=== PATIENT | female | born 1990 | race Caucasian/White ===

== ENCOUNTER → 2017-03-10 | Outpatient (CLI) | payer MEDICAID ==
[~2017-03-10] MED LIST: BACTRIM DS 8001 TAB PO; BC PILL; KEFLEX 500MG.500 MG PO; LEVAQUIN500 MG PO; NOMEDS *; PENICILLIN-VK500 MG PO; PRENATABS FA1 TAB PO; PYRIDIUM 200MG200 MG PO; PYRIDIUM100 MG PO; VIBRAMYCIN 100100 MG PO; VICODIN 5/500 T1 TAB PO; VOLTAREN75 MG PO; [UNRECOGNIZED DRUG - REMARK]
--- NOTE | 2017-03-10 15:24 | RADIOLOGY REPORT PS360 ---
US PREG COMP: INDICATION: OB ANATOMY SCAN ORDERING PHYSICIAN: Ephraim Mendez MD PATIENT AGE: 26 years TECHNIQUE: ultrasound transabdominal scanning. COMPARISON: No previous relevant studies. FINDINGS: Single viable intrauterine gestation. Cephalic position. Placenta: Anterior placenta grade 1. There is average amount fluid. The cervix appears satisfactory. Closed and measuring 3 cm in length. Complete survey performed and was unremarkable on the submitted images as in PACS. No discrete anomalies identified on survey imaging by technologist. Active fetus. Three-vessel cord with satisfactory umbilical cord insertion. 4- chamber heart noted. Survey of brain & ventricles. Face and neck survey unremarkable. Diaphragm and chest views unremarkable. Abdomen: Both kidneys noted and unremarkable. Stomach noted and satisfactory. Spine: Survey of the spine satisfactory with no anomalies identified nor imaged. Both arms and legs noted. Amniotic Fluid: Adequate. Maternal adnexa: No significant findings. Measurements: Average ultrasound age 19 weeks 3 days. Gestational Age 19 weeks 6 days. Estimated due date by ultrasound age 1008/01/2017. Estimated weight 291 grams. BPD = 19 weeks 3 days OFD = 20 weeks 1 day HC = 19 weeks 1 day AC = 19 weeks 3 days FL = 19 weeks 5 days Heart Rate = 149 BPM Cerebellum = 20 weeks 0 days Humerus = 19 weeks 2 days HC/AC is 1.17. CI is 76%. FL/BPD is 70%. FL/AC is 22%. IMPRESSION: There is a single live fetus present in cephalic presentation with an average ultrasound age of 19 weeks 3 days. heart and body motion noted. No anatomic abdomen eyes apparent. Anterior placenta without previa or abruption. Please see above for detail
== END ==
LOC: RAD 12:53
DX: Z36 Encounter for antenatal screening of mother (principal)

== ENCOUNTER → 2017-03-17 | Outpatient (CLI) | payer MEDICAID | LOC: LAB 17:15 | DX: N39.0 Urinary tract infection, site not specified (principal) ==

== ENCOUNTER → 2017-06-30 | Outpatient (CLI) | payer MEDICAID | LOC: LAB 17:48 | DX: Z34.80 Encounter for supervision of other normal pregnancy, unspecified trimester (principal) ==

== ENCOUNTER 2017-07-12 14:55 | Outpatient (CLI) | payer MEDICAID ==
[~2017-07-12] VITALS: Ht 160 cm; Wt 53.5 kg
[2017-07-12 15:12] VITALS: BP 111/72
[2017-07-12 15:17] LABS: URINE BILIRUBIN - DIPSTICK NEGATIVE (NEG); URINE BLOOD NEGATIVE (NEG)
== END 2017-07-12 16:05 | disposition home or self-care (01) ==
LOC: OBOUT 14:55 → OB 14:56 → OBOUT 16:05
PROVIDERS: Nurse Practitioner Obstetrics & Gynecology
DX: O60.03 Preterm labor without delivery, third trimester (principal); Z3A.37 37 weeks gestation of pregnancy

== ENCOUNTER → 2017-07-16 | Outpatient (CLI) | payer MEDICAID ==
[~2017-07-16] MED LIST changes: +PERCOCET 5/3251 EACH PO
--- NOTE | 2017-07-16 15:07 | RADIOLOGY REPORT PS360 ---
US PREG FOLLOWUP SINGLE FETUS: Indication: OB US FOR SMALL GESTATIONAL AGE ORDERING PHYSICIAN: Ephraim Mendez MD PATIENT AGE: 26 years FINDINGS: Single live fetus is present in the cephalic presentation. heart and body motion is noted. The placenta is anterior and grade 2. No previa or abruption The following parameters are obtained: Average ultrasound age is 34 weeks 6 days. Gestational age is 38 weeks 1 day. Estimated due date by ultrasound is 08/21/2017. Estimated weight is 2565 g. This is at 5 percentile according to last menstrual period BPD: 33 weeks 6 days OFD: 39 weeks 0 days HC: 35 weeks 2 days AC: 35 weeks 5 days FL: 34 weeks 1 day heart rate: 146 bpm. HC/AC: 0.99 Cephalic index: 74% FL/BPD: 79% FL/AC: 21% Amniotic fluid index: 10 cm Qualitative AFV: 2 breathing movements: 2 Gross body movements: 2 Tone: 2 Biophysical profile score: 8/8 Doppler evaluation of the umbilical artery: SD ratio: 2.9 Resistive index: 0.66 No obvious anomalies evident. IMPRESSION: Live IUP with an average ultrasound age of 34 weeks 6 days. Estimated weight is 2565 g at 5 percentile according to last menstrual period. There has been adequate progression when compared to the previous ultrasound of 07/05/2017. At that time the estimated weight was 4 lbs. 3 oz.
== END ==
LOC: RAD 09:00
DX: O36.5131 Maternal care for known or suspected placental insufficiency, third trimester, fetus 1 (principal)

== ENCOUNTER 2017-07-22 03:01 | Inpatient (IN) | payer MEDICAID ==
[~2017-07-22] VITALS: Ht 160 cm; Wt 52.6 kg
[~2017-07-22 03:01] MED LIST changes: -PERCOCET 5/3251 EACH PO
[2017-07-22 07:11] LABS: BUN 5 mg/dL (7-18)
[2017-07-22 07:12] LABS: GFR (ESTIMATED) 103 ML/MIN (59-)
[2017-07-22 08:03] LABS: HEMOGLOBIN 12.9 g/dL (12.2-16.2)
[2017-07-22 08:04] LABS: LYMPH # 2.8 K/mm3 (0.7-4.5); LYMPH % 18.9 % (10-50.0)
--- NOTE | 2017-07-22 09:26 | Operative Note ---
Procedure/Operative Record Procedure Date of procedure: 07/22/17 Pre-Op Dx: Severe intrauterine growth restriction, patient request for section, term Post-Op Dx: Severe intrauterine growth obstruction, patient request for section, term Procedure performed: Primary lower segment transverse section Surgeon: Dr. Ephraim Mendez Power Digger Operator(s): Beatrice Novak Anesthesia: Ran Jacy EBL (ml): 600 Clinical note: She is a 26-year-old 1 now para 0 who was 39 weeks gestational age. She has been followed for an extremely small for gestational age infant. The baby was less than the 5th percentile. As result of that she was offered primary lower segment transverse section at term. Operative findings: She delivered a live-born female child at 8:52 AM on the morning of June. The baby had Apgars of 9 at 1 minute and 9 at 5 minutes. Ovaries and tubes appeared normal. Operative note: She was taken to the operating room where spinal anesthesia was found be adequate. She was prepped and draped in normal sterile fashion in the supine position with a leftward tilt. A Mcallister catheter was in the bladder. A Pfannenstiel skin incision was made with knife then carried through to the underlying layer of fascia with cautery. The fascia was opened in the midline with cautery and extended laterally using Clayton scissors. James clamps were applied to the superior aspect of the fascial incision which was tented up and the underlying rectus muscles dissected off using cautery. The James clamps were then applied to the inferior aspect of the fascial incision which in a similar fashion was tented up and the underlying rectus muscles dissected off using cautery. The rectus muscles were then in the midline, the peritoneum identified, and entered sharply with Metzenbaum scissors. This incision was then extended superiorly and inferiorly with cautery. We had good visualization of the bladder inferiorly. The bladder peritoneum was then opened in the midline and extended laterally using Metzenbaum scissors. A bladder flap was created digitally. The lower blade of the Suhail was inserted so as to push the bladder out of the way. Transverse incision was made through the uterine muscle to the amnion. This incision was then extended laterally using fingers traction. The amnion was entered sharply with knife. The infant's head was then delivered atraumatically. This was followed by the anterior shoulder and the rest of the infant's body atraumatically. The oropharynx and nasopharynx were bulb suctioned. The infant was then handed off to Dr. Nieves who assigned Apgars of 9 at 1 minute and 9 at 5 minutes. We then obtained cord blood as well as cord pH. Using gentle traction on the cord and countertraction on the fundus I was able to easily deliver the placenta intact. It had a normal three-vessel cord. The uterus was then cleared of clots and debris. The uterine incision was then closed using running 0 Vicryl suture in a locked fashion. A second layer of the same suture was used to imbricate the first layer. The bladder peritoneum was then closed using running 2-0 Vicryl suture in a locked fashion. There was a small amount of ooze along the incision just to the LEFT of midline and figure- of-eight sutures were used here to obtain excellent hemostasis. The gutters and cul-de-sac were then cleared of clots and debris. Once again hemostasis was assured. I elected to place a piece of Surgicel along the uterine incision. The peritoneum was grasped with Minna clamps and closed using running 2-0 Vicryl suture. The rectus muscles were then reapproximated using running 0 Vicryl suture. The fascia was closed using running #1 Vicryl suture. The subcutaneous tissues were then irrigated with warm water followed by closure Maryam's fascia using running 2-0 Monocryl suture. The skin was closed with emely. I then clean the incision with Hibiclens. Sterile dressings were applied. She tolerated the procedure well and was taken to the recovery room in excellent condition. All sponges minute and needle counts were correct. Estimate a blood loss was approximately 600 mL. Conplications: None Specimens: Products of conception at 7384
--- NOTE | 2017-07-22 09:29 | Anesthesia Record ---
Anesthesia Record Part I Total IV fluids: 1800 EBL (ml): 600 Urine Output: 300 B/P: 112/74 % SaO2: 97 Pulse: 76 Resps: 18 Temp: 97.8 Patient is: Awake, Stable Stable to PACU at: 0927 at 0929
--- NOTE | 2017-07-22 09:30 | Anesthesia Record ---
Anesthesia Record Part II Discharge time: 956 Destination: OB PACU nurse assessment review? Yes Patient is: Awake, Stable Anesthesia complications? No at 0930
[2017-07-22 10:28] VITALS: BP 109/69
[2017-07-22 12:33] LABS: ABO BLOOD TYPE A
[2017-07-22 12:34] LABS: RH BLOOD TYPE POSITIVE
--- NOTE | 2017-07-22 13:55 | PHARMACY CLINIC NOTE ---
Patient Demographics Patient Demographics Admission date: 07/22/17 Date: 07/22/17 Time: 1354 Allergies Coded Allergies: No Known Allergies () HEIGHT- FT: 4 IN: 10.00 K.176 VTE General Information Labs: Laboratory Tests 07/22 0700 Hematology Hgb (12.2 - 16.2 g/dL) 12.9 Hct (37.0 - 47.0 %) 39.3 Plt Count (142 - 424 K/mm3) 222 Disclaimer The following section includes nursing documentation that has been pulled in for pharmacy review. VTE prophylaxis NQF 0371 VTE prophylaxis ordered? Yes Type of prophylaxis/treatment: ICD at 8325
[2017-07-23 06:37] LABS: HEMOGLOBIN 10.3 g/dL (12.2-16.2)
[2017-07-23 07:33] VITALS: BP 114/67
--- NOTE | 2017-07-23 08:08 | ACUTE CARE PROGRESS NOTE (QUA) ---
Progress Notes Subjective Date 07/23/17 Time 0805 Note She is doing well this morning. She is eating and drinking and ambulating. She is bottlefeeding. Her lochia is normal. Her pain is reasonably well-controlled although she was quite tender this morning. She is not taking any narcotic pain medicine overnight. She is taking Toradol. Laboratory Tests 07/23/17 0605: Hgb 10.3 L, Hct 30.5 L 07/22/17 1815: Potassium 3.2 L 07/22/17 0855: Cord Blood pH 7.41 Patient/family reports: feeling better, pain Objective Findings Last VS-Temp:98.2 B/P:122/74 Pulse:88 Resp:16 SaO2:100 ROOM AIR Last weight lbs:116 oz:0 K.617 Method:Floor Scales Exam General appearance: normal appearance, alert, awake, no acute distress Reviewed: vital signs, lab results Assessment/Plan Problem List 1. Intrauterine growth restriction, delivered, current hospitalization Patient condition Improving, Stable Plan: continue current care This inpt stay is expected to cross 2 MNs from start of care Yes Comments: She is doing very well this morning. We'll plan to send her home in 48 hours. at 0807
[2017-07-23] MEDS ORDERED: PERCOCET 5/3251 EACH PO (08:09)
--- NOTE | 2017-07-23 08:12 | Discharge Summary ---
See Addendum Discharge Summary Admission date: 07/22/17 Discharge date: 07/25/17 Discharge diagnoses: Term , severe intrauterine growth restriction, patient request for section. Clinical note: She is a 26-year-old 1 now para 1 who was 39 weeks gestational age. She had extremely small baby and since she was term we elected to deliver her. The patient had requested a section. Course in hospital: On July 22, 2017 she underwent a primary lower segment transverse section. She delivered a live-born female child at 8:52 AM on the morning of July 14, 2017. The baby weighed 5 lbs. 10 oz. with Apgars of 9 at 1 minute and 9 at 5 minutes. She has done well postoperatively and has remained afebrile throughout her hospitalization. She is eating and drinking and ambulating. She is bottlefeeding. Her lochia is normal. She has a positive blood, she is rubella immune and was group B streptococcus negative. Laboratory Tests 07/23/17 0605: Hgb 10.3 L, Hct 30.5 L 07/22/17 1815: Potassium 3.2 L 07/22/17 0855: Cord Blood pH 7.41 Plans for ongoing care: She is discharged home to follow-up with me in approximately 2 weeks' time. Discharge medications She will continue with her vitamins and iron. She was given a pressure for Percocet 5/325, 30 tablets. DC/follow-up instructions She was given the usual instructions with respect to limiting her activity, driving and sexual activity. She was given instructions with respect to wound care. Condition at discharge Stable and improved at 0812
--- NOTE | 2017-07-23 16:09 | RADIOLOGY REPORT PS360 ---
CHEST(2 VIEWS-NOT PORTABLE) HISTORY: COUGH ORDERING PHYSICIAN: Ephraim Mendez MD PATIENT AGE: 26 years COMPARISON: 04/15/2014 FINDINGS: The cardiomediastinal silhouette and pulmonary vascularity are within normal limits. The lungs are clear without infiltrates, suspicious nodules, or pleural effusions. No acute bony abnormalities. There is a faint opacity in the right upper lobe laterally which may be due to a small granuloma IMPRESSION: No acute finding
--- NOTE | 2017-07-23 16:48 | ACUTE CARE PROGRESS NOTE (QUA) ---
Progress Notes Subjective Date 07/23/17 Time 1644 Note I was called to see the patient and Dr. Mendez's absence. She is 36 hours postoperative primary , which presumably went well. The baby is doing well. The patient was also apparently doing well until approximately 1200 hrs. today, when she started complaining of pain in her RIGHT leg. According to the RN, her RIGHT leg was swollen below the knee. She was afebrile. No skin changes. A Doppler flow study was done, which was apparently read as normal (no DVT). Nonetheless, the patient continues to complain of worsening pain in her leg, which now extends to the RIGHT groin. I've examined the patient. She is afebrile. Her vital signs are stable. Her oxygen saturation is good. Her wound is clean. There is some swelling below the RIGHT side of the wound, on the mons pubis, and this area is quite tender. I've done a Ihsan's, which is negative. The patient's RIGHT leg is slightly swollen compared to the LEFT, but not appreciably. There are no skin changes consistent with cellulitis. The patient is exquisitely uncomfortable however and so I'm ordering a CT scan of the pelvis and a complete blood count. Assessment/Plan Problem List 1. Intrauterine growth restriction, delivered, current hospitalization This inpt stay is expected to cross 2 MNs from start of care Yes at 7866
[2017-07-23 17:08] LABS: HEMOGLOBIN 11.3 g/dL (12.2-16.2); LYMPH # 2.4 K/mm3 (0.7-4.5); LYMPH % 10.7 % (10-50.0)
[2017-07-23 17:42] LABS: NEUTROPHILS 87 % (42-76)
[2017-07-23 19:35] VITALS: BP 117/77
[2017-07-24 08:34] VITALS: BP 107/67
--- NOTE | 2017-07-24 08:43 | ACUTE CARE PROGRESS NOTE (QUA) ---
Progress Notes Subjective Date 07/24/17 Time 0840 Note This is /postop day number 2. The patient is afebrile. Her vital signs are stable. Her wound is clean. Her abdomen is soft. Her uterine fundus is involuting well. Her lochia is normal. Her RIGHT leg pain is somewhat improved. Her white count came back 24.2, and she was started on intravenous Ancef during the night, in spite of being afebrile. There was concern about a possible septic pelvic thrombophlebitis, but clinically the patient does not fit the picture. Her mons is less edematous this morning, and she is having less leg pain. Ihsan' s is still negative. I will repeat her complete blood count at noon today and follow. Impression: Improving. Assessment/Plan Problem List 1. Intrauterine growth restriction, delivered, current hospitalization This inpt stay is expected to cross 2 MNs from start of care Yes at 0843
[2017-07-24 13:13] LABS: HEMOGLOBIN 10.8 g/dL (12.2-16.2); LYMPH # 2.7 K/mm3 (0.7-4.5); LYMPH % 12.3 % (10-50.0)
--- NOTE | 2017-07-24 13:58 | RADIOLOGY REPORT PS360 ---
CT ABD PELVIS W/ CONTRAST HISTORY: SWELLING IN PELVIS DOWN RIGHT LEGC-section one day ago pain and edema incision site Patient Age: 26 years: Female Ordering Physician: Ephraim Mendez MD TECHNIQUE: 75 cc [id number]. It appears to the left COMPARISON :None available FINDINGS Most notable on this study as the dramatically enlarged recent post uterus. It measures up to over 17 cm length 6.5 cm AP and prominent 14 cm transverse. Homogeneous fluid density endometrial stripe but at the upper two thirds of the uterus. The scar defect is seen at the anterior aspect the lower uterine segment. & is some additional density within the endometrial cavity this deep to the incision which I suspect reflect residual clot at this point.. Warrant correlate with character of lochia and discharge. The left aspect the uterus has a more homogeneous enhancement. Where as the right-sided uterus and anterior myometrium has more prominent prominent vascular structures and less homogeneous enhancement of the myometrium.. This may reflect prior distribution of placenta. There is some slight irregularity in the contour of the uterine cavity posterior to the right. I believe we see the scar at the lower aspect of the uterus anteriorly. The leaking over prior ultrasounds under the placenta was anterior into the right which may correspond with this additional vascularity the uterus pattern.. Prominent dilated venous structures along the right aspect of the uterus and at right adnexa. A suspect developing pelvic varicosities on the right. These seem to be associated with a asymmetric large and prominent right ovarian vein leading to the right renal vein.. Given the overall picture question that there may been a incompetent enlarged right ovarian vein which contributes to these prominent para uterine veins on right. If symptoms do not improve this may warrant further investigation. Please feel free to discuss with us.. Also note there is relatively early enhancement of these veins prior to the iliac vessels which may reflect some hypervascularity or minimal shunting possibly. There is stippled residual free air anterior to the bladder from the recent surgery. Minimal stippled air is seen throughout the mildly thickened anterior abdominal wall and along the region of the incision again most likely reflecting postsurgical changes. No focal fluid collection from abscess or significant hematoma is seen here . There there is also a slightly stippled appearance transverse area of material just above the bladder, anterior to the uterus uterus. But difficult to tell of this reflects a loop of large bowel in this region versus a region containing Surgicel (, axial image 98 base 94). It measures less than 1.5 cm AP but does span up to nearly 6 cm transverse. Again it may merely be related to a loop of stool contained large bowel There is prominent stool at the right colon appears to a gas transverse colon with moderate stool descending colon There is some air within the bladder which presumably is iatrogenic as well. There is no prominent or discrete free fluid at the pelvis. Scant if any. There are generous fluid throughout small bowel which may reflect a mild ileus. The liver spleen pancreas gallbladder adrenals.-Unremarkable There is mild/moderate hydronephrosis at the right kidney with dilated right ureter down to the enlarged uterus. No calculi are seen here and this may merely reflect hydronephrosis of with the uterus compressing the right ureter as it enters pelvis.. Only trace hydronephrosis left kidney likely again reflecting distal ureteral compression by the enlarged uterus Osseous structures are unremarkable Lung bases appear clear. Heart upper normal in size reflecting recent status. . There may be some mild asymmetric edema towards the right mons more than left IMPRESSION: 1. Very enlarged recent uterus. 2. scar evident anterior aspect lower uterus. Generous homogeneous fluid filled endometrial stripe above the .. Immediate Posterior to the scar the endometrium becomes inhomogeneous, suspect reflecting residual clot from extending posterior from incision. Requires correlation with located and discharge 3. No discrete focal abscess or significant hematoma evident. Stool-filled Bowel loop vs Surgicel just above bladder and anterior to uterus noted. This area may require follow-up if white count remains significant elevated 4.. Curious Asymmetric enhancement of uterus.Homogeneous enhancement the left uterus. Less myometrial enhancement asymmetric prominent Prominent vessels seen throughout the right & anterior myometrium-. Prominent uterine vessels throughout these regions-. This may possibly reflect the distribution of of placenta. 5. Additionally note the prominent Dilated para Uterine veins throughout right adnexa leading to a enlarged right ovarian vein. (These areas are nicely enhanced we see no evidence of intraluminal thrombus this modality.) However suspected patient may be developing some significant venous varicosities of the right adnexa and right para uterine veins. 6. Stippled minimal free air overlying the bladder and lower pelvis most likely reflects recent surgery; as does the minimal stippled air or along thickened abdominal wall at and below the incision. Minimal air in the bladder likely iatrogenic as well 7. Hydronephrosis right kidney likely reflecting the enlarged uterus and hydronephrosis of Findings discussed with Dr. Ariza. Understand patient is improving clinically.
[2017-07-24 19:55] VITALS: BP 122/80
[2017-07-25 08:00] VITALS: BP 118/64
--- NOTE | 2017-07-25 08:56 | ACUTE CARE PROGRESS NOTE (QUA) ---
Progress Notes Subjective Date 07/25/17 Time 0853 Note This morning, the patient is afebrile. Her vital signs are stable. Her white count is still over 22,000. Although she is complaining less of pain in her RIGHT leg, that leg appears even more "tight" and swollen this morning. Patient wishes to be discharged, but I don't feel that that is safe plan at this time. I believe continued antibiotics and resting of the RIGHT leg is better plan, we'll given the presumptive diagnosis of septic pelvic thrombophlebitis. She is not being anticoagulated this time, but I will leave that to Dr. Mendez's discretion upon his return. Assessment/Plan Problem List 1. Intrauterine growth restriction, delivered, current hospitalization This inpt stay is expected to cross 2 MNs from start of care Yes at 0855
[2017-07-25 21:12] VITALS: BP 135/76
[2017-07-26 07:30] VITALS: BP 118/71
--- NOTE | 2017-07-26 07:49 | ACUTE CARE PROGRESS NOTE (QUA) ---
Progress Notes Subjective Date 07/26/17 Time 0746 Note She is doing very well this morning. She is eating and drinking and ambulating. Her pain is well-controlled. The previous swelling in her RIGHT leg has significantly decreased. She denies any pain or calf tenderness. Patient/family reports: feeling better, no complaints Objective Findings Last VS-Temp:97.9 B/P:135/76 Pulse:71 Resp:18 SaO2:100 ROOM AIR Last weight lbs:116 oz:0 K.617 Method:Floor Scales Exam General appearance: normal appearance, alert, awake, no acute distress ABD: normal exam, non-distended Extremities: normal exam, edema (she has bilateral edema.) Reviewed: vital signs, lab results Assessment/Plan Problem List 1. Intrauterine growth restriction, delivered, current hospitalization Patient condition Improving, Stable Plan: continue current care, initiate discharge plan This inpt stay is expected to cross 2 MNs from start of care Yes Comments: She is doing much better this morning. We'll plan to send her home. at 0720
== END 2017-07-26 10:25 | disposition home or self-care (01) | DRG 766 ==
LOC: OB 03:01 → EDSTATUS 07-26 07:30 → SDC 07-26 07:30 → OB 07-26 10:25
PROVIDERS: Nurse Practitioner Obstetrics & Gynecology; Obstetrics & Gynecology
PROC: 10D00Z1 Extraction of Products of Conception, Low, Open Approach (ICD-10-PCS; principal; 2017-07-22 08:30)
DX: O36.5930 Maternal care for other known or suspected poor fetal growth, third trimester, not applicable or unspecified (principal); M79.89 Other specified soft tissue disorders; Z37.0 Single live birth; Z3A.39 39 weeks gestation of pregnancy
CPT/HCPCS: G0238; J2405; Q2038; Q9967